=== PATIENT | female | born 1985 | race Caucasian/White ===

== ENCOUNTER 2017-07-22 16:28 | Emergency (ER) | payer MEDICAID ==
[2017-07-22 16:44] VITALS: BP 128/78
--- NOTE | 2017-07-22 17:24 | ED Physician Documentation ---
PD HPI HEENT - Stated complaint Stated Complaint: L EYE REDNESS - Chief complaint Chief Complaint: General - History obtained from History obtained from: Patient - History of Present Illness Timing - onset: How many weeks ago (4) Timing - duration: Weeks (4) Timing - details: Gradual onset, Still present Location: Sinuses, Nose, Throat, Other (left eye) Improves: Nothing Worsens: Everything Associated symptoms: Congestion, Rhinorrhea, Swollen nodes, Headache, Cough Similar symptoms before: Has not had sx before Recently seen: Not recently seen - Additional information Additional information: 31-year-old female has been sick with a cough and congestion for the past 4 weeks. She has had sinus congestion cough productive of phlegm headache lymph node swelling sore throat lost voice and now has redness to the left eye. She relates that she has been on a parasite cleansing and brings in pictures of what appear to be roundworms that she has flushed following this treatment. She took this treatment for itching to her buttocks and this is resolved now Review of Systems Constitutional: reports: Fever, Chills, Myalgias, Fatigue Eyes: denies: Decreased vision Ears: denies: Ear pain Nose: reports: Rhinorrhea / runny nose, Congestion Throat: reports: Sore throat Cardiac: denies: Chest pain / pressure, Palpitations Respiratory: reports: Cough. denies: Dyspnea GI: reports: Constipation. denies: Nausea, Vomiting : denies: Dysuria, Frequency Skin: denies: Rash, Lesions Musculoskeletal: denies: Neck pain, Back pain, Extremity pain Neurologic: denies: Generalized weakness, Focal weakness, Numbness PD PAST MEDICAL HISTORY - Past Medical History Past Medical History: No - Past Surgical History Past Surgical History: No - Present Medications Home Medications: Ambulatory Orders Medication Instructions Recorded Confirmed Azithromycin [Zithromax] 250 mg PO DAILY #6 tablet 07/22/17 - Allergies Allergies/Adverse Reactions: Allergies Allergy/AdvReac Type Severity Reaction Status Date / Time No Known Drug Allergies Allergy Verified 07/22/17 16:47 - Social History Does the pt smoke?: No Smoking Status: Never smoker Does the pt drink ETOH?: No Does the pt have substance abuse?: No - Immunizations Immunizations are current?: Yes - POLST Patient has POLST: No PD ED PE NORMAL - Vitals Vital signs reviewed: Yes (normal ) - General General: No acute distress, Well developed/nourished - HEENT HEENT: Atraumatic, PERRL, EOMI, Other (The left TM is erythematous with indistinct landmarks and the right is clear. The pharynx is with erythema and no specific exudate. The left eye is with erythema and no exudate. There is no cobblestoning of the conjunctiva. ) - Neck Neck: Supple, no meningeal sign, No bony TTP, Other (tender submandibular adenopathy ) - Cardiac Cardiac: RRR, No murmur - Respiratory Respiratory: No respiratory distress, Clear bilaterally - Abdomen Abdomen: Soft, Non tender - Back Back: No CVA TTP, No spinal TTP - Derm Derm: Normal color, Warm and dry, No rash - Extremities Extremities: No deformity, No edema - Neuro Neuro: Alert and oriented X 3, No motor deficit, No sensory deficit, Normal speech Eye Opening: Spontaneous Motor: Obeys Commands Verbal: Oriented GCS Score: 15 - Psych Psych: Normal mood, Normal affect Results - Vitals Vitals: Vital Signs - 24 hr 07/22/17 16:41 Temperature 36.5 C Heart Rate 85 Respiratory 20 Rate Blood Pressure 128/78 O2 Saturation 98 Oxygen O2 Source Room air PD MEDICAL DECISION MAKING - ED course Complexity details: considered differential, d/w patient ED course: 31-year-old female with cough and congestion for 4 weeks has otitis media on examination. She is given dexamethasone [address] her on some azithromycin. In addition she does have a conjunctivitis in the left eye which I suspect is related to the left maxillary sinus. Maxitrol drops are placed Departure - Departure Disposition: 01 Home, Self Care Clinical Impression: Otitis media Qualifiers: Otitis media type: suppurative Chronicity: acute Laterality: left Recurrence: not specified as recurrent Spontaneous tympanic membrane rupture: without spontaneous rupture Qualified Code(s): H66.002 - Acute suppurative otitis media without spontaneous rupture of ear drum, left ear Conjunctivitis Qualifiers: Conjunctivitis type: acute Acute conjunctivitis type: bacterial Laterality: left Qualified Code(s): H10.32 - Unspecified acute conjunctivitis, left eye Condition: Stable Instructions: ED Otitis Media Acute Adult, ED Conjunctivitis Bacterial Follow-Up: [facility] [Provider Group] Prescriptions: Azithromycin [Zithromax] 250 mg PO DAILY #6 tablet Comments: Use the eye drops 3 times per day for 3 days.
[2017-07-22] MEDS ORDERED: DEXAMETHASONE 10 MG/ML VIAL PO STA (17:26)
[2017-07-22] MEDS ORDERED: NEOMYCIN/POLYMYX/DEXAMETH OPHTH DROPS 5 ML LEFTEYE STA (17:27)
[2017-07-22] MEDS ORDERED: DEXAMETHASONE 10 MG/ML VIAL ONE (17:39)
[2017-07-22] MEDS ORDERED: NEOMYCIN/POLYMYX/DEXAMETH OPHTH DROPS 5 ML ONE (17:39)
== END 2017-07-22 17:45 | disposition home or self-care (01) ==
LOC: ED 16:28
DX: H10.32 Unspecified acute conjunctivitis, left eye (principal); B96.89 Other specified bacterial agents as the cause of diseases classified elsewhere; H66.002 Acute suppurative otitis media without spontaneous rupture of ear drum, left ear
CPT/HCPCS: 99283; J3490

== ENCOUNTER 2018-01-12 08:26 | Emergency (ER) | payer MEDICAID ==
--- NOTE | 2018-01-12 08:53 | ED Physician Documentation ---
PD HPI ABD PAIN - Stated complaint Stated Complaint: ABD PX - Chief complaint Chief Complaint: Abd Pain - History obtained from History obtained from: Patient - History of Present Illness Timing - onset: How many weeks ago (several) Timing - duration: Weeks (several) Timing - details: Gradual onset Pain level max: 8 Pain level now: 6 Quality: Aching, Pain, Other ("thumping and fluttering") Location: RUQ Radiation: Other (Nonradiating) Improved by: Other (nothing) Worsened by: Eating, Palpation Associated symptoms: Fever (2 days ago subjective fever), Nausea, Constipation ( 3 days ago). No: Vomiting, Hematemesis, Diarrhea, Melena, Hematochezia, Dysuria , Hematuria, Vaginal bleeding, Vaginal dc Similar symptoms before: Has not had sx before Recently seen: Not recently seen Review of Systems Ten Systems: 10 systems reviewed and negative Ears: denies: Ear pain Nose: denies: Rhinorrhea / runny nose, Congestion Throat: denies: Sore throat Cardiac: denies: Chest pain / pressure Respiratory: denies: Cough GI: denies: Abdominal Swelling, Hematemesis, Bloody / black stool : denies: Now EGA Skin: denies: Rash Musculoskeletal: denies: Neck pain, Back pain Neurologic: denies: Headache PD PAST MEDICAL HISTORY - Past Medical History Past Medical History: No - Past Surgical History 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 - Present Medications Home Medications: Ambulatory Orders Medication Instructions Recorded Confirmed Famotidine [Pepcid] 20 mg PO BID #60 tablet 01/12/18 Omeprazole [PriLOSEC] 20 mg PO DAILY #30 capsule 01/12/18 - Allergies Allergies/Adverse Reactions: Allergies Allergy/AdvReac Type Severity Reaction Status Date / Time No Known Drug Allergies Allergy Verified 01/12/18 08:50 - Living Situation Living Situation: reports: With family Living Arrangement: reports: At home - Social History Does the pt smoke?: No Smoking Status: Never smoker Does the pt drink ETOH?: No Does the pt have substance abuse?: No - Family History Family history: reports: Non contributory - Immunizations Immunizations are current?: Yes - POLST Patient has POLST: No PD ED PE NORMAL - Vitals Vital signs reviewed: Yes - General General: Alert and oriented X 3, No acute distress, Well developed/nourished - HEENT HEENT: PERRL, Moist mucous membranes - Neck Neck: Supple, no meningeal sign - Cardiac Cardiac: RRR, Strong equal pulses - Respiratory Respiratory: No respiratory distress, Clear bilaterally - Abdomen Abdomen: Soft, Non distended, Other (Tender to palpation right upper quadrant. Positive Wilkes sign.) - Back Back: No spinal TTP - Derm Derm: Warm and dry - Extremities Extremities: No edema, No calf tenderness / cord - Neuro Neuro: Alert and oriented X 3 - Psych Psych: Normal mood, Normal affect Results - Vitals Vitals: Vital Signs - 24 hr 01/12/18 01/12/18 01/12/18 08:44 10:47 11:54 Temperature 36.5 C 36.3 C L 36.1 C L Heart Rate 81 82 82 Respiratory 16 18 20 Rate Blood Pressure 120/82 H 113/81 H 134/100 H O2 Saturation 99 100 91 L Oxygen O2 Source Room air - Labs Labs: Laboratory Tests 01/12/18 01/12/18 01/12/18 09:10 09:10 09:10 WBC 6.1 RBC 4.87 Hgb 14.2 Hct 42.1 MCV 86.4 MCH 29.1 MCHC 33.7 RDW 13.4 Plt Count 226 MPV 8.6 Neut # 3.1 Lymph # 2.1 [place] # 0.7 Eos # 0.2 Baso # 0.0 Absolute Nucleated RBC 0.00 Nucleated RBC % 0.0 Sodium 138 Potassium 3.2 L Chloride 102 Carbon Dioxide 26 Anion Gap 10.0 BUN 13 Creatinine 0.6 Estimated GFR (MDRD) 117 Glucose 94 Calcium 9.3 Total Bilirubin 0.5 AST 20 ALT 18 Alkaline Phosphatase 56 Total Protein 8.4 H Albumin 4.2 Globulin 4.2 Albumin/Globulin Ratio 1.0 Lipase 21 L Urine Color YELLOW Urine Clarity CLEAR Urine pH 6.0 Ur Specific [place] >=1.030 H Urine Protein NEGATIVE Urine Glucose (UA) NEGATIVE Urine Ketones NEGATIVE Urine Occult Blood SMALL H Urine Nitrite NEGATIVE Urine Bilirubin NEGATIVE Urine Urobilinogen 0.2 (NORMAL) Ur Leukocyte Esterase NEGATIVE Urine RBC 0-5 Urine WBC 0-3 Ur Squamous Epith Cells RARE Squamous Urine Bacteria Rare Urine Casts 0-2 Broad Casts Ur Microscopic Review INDICATED Urine Culture Comments NOT INDICATED Urine HCG, Qual 01/12/18 09:10 WBC RBC Hgb Hct MCV MCH MCHC RDW Plt Count MPV Neut # Lymph # [place] # Eos # Baso # Absolute Nucleated RBC Nucleated RBC % Sodium Potassium Chloride Carbon Dioxide Anion Gap BUN Creatinine Estimated GFR (MDRD) Glucose Calcium Total Bilirubin AST ALT Alkaline Phosphatase Total Protein Albumin Globulin Albumin/Globulin Ratio Lipase Urine Color Urine Clarity Urine pH Ur Specific [place] >=1.030 H Urine Protein Urine Glucose (UA) Urine Ketones Urine Occult Blood Urine Nitrite Urine Bilirubin Urine Urobilinogen Ur Leukocyte Esterase Urine RBC Urine WBC Ur Squamous Epith Cells Urine Bacteria Urine Casts Ur Microscopic Review Urine Culture Comments Urine HCG, Qual NEGATIVE - Rads (name of study) RUQ US Radiology: Prelim report reviewed, EMP read contemporaneously, See rad report ( normal RUQ US) abd/pelvis ct Radiology: Prelim report reviewed, EMP read contemporaneously, See rad report ( no acute abnormalities.) PD MEDICAL DECISION MAKING - ED course Complexity details: reviewed results, re-evaluated patient, considered differential, d/w patient ED course: Patient is a 32-year-old female who presents to the emergency department with abdominal pain. No acute findings on laboratory testing, ultrasound or CT scan. Patient was given a GI cocktail and does feel better. Upon further investigation, she states she did have an ulcer that was bleeding when she was in ninth grade. Has not been on any medications for that since that time. We will treat her for a possible duodenal ulcer and follow-up closely with her doctor. She was informed that she may need an EGD and further testing with her doctor. Patient counseled regarding signs and symptoms for which I believe and urgent re-evaluation would be necessary. Patient with good understanding of and agreement to plan and is comfortable going home at this time This document was made in part using voice recognition software. While efforts are made to proofread this document, sound alike and grammatical errors may occur. Departure - Departure Disposition: 01 Home, Self Care Clinical Impression: Duodenal ulcer Abdominal pain Qualifiers: Abdominal location: right upper quadrant Qualified Code(s): R10.11 - Right upper quadrant pain Condition: Good Instructions: ED Abdominal Pain Unkn Cause, ED PUD Follow-Up: your,doctor in 1 week [Other] Prescriptions: Famotidine [Pepcid] 20 mg PO BID #60 tablet Omeprazole [PriLOSEC] 20 mg PO DAILY #30 capsule Comments: Return if you worsen. This should improve over the next few days 2 weeks. Avoid fried foods, spicy foods. Avoid motrin and aleve as well. Discharge Date/Time: 01/12/18 12:05
[2018-01-12 09:33] LABS: BILIRUBIN,URINE NEGATIVE (NEGATIVE); GLUCOSE, URINE (UA) NEGATIVE (NEGATIVE); KETONES,URINE (UA) NEGATIVE (NEGATIVE); LEUKOCYTE ESTERASE, URINE NEGATIVE (NEGATIVE); NITRITE,URINE NEGATIVE (NEGATIVE); OCCULT BLOOD,URINE SMALL (NEGATIVE); PROTEIN,URINE NEGATIVE (NEGATIVE); UROBILINOGEN,URINE 0.2 (NORMAL) E.U./dL (NORMAL)
[2018-01-12 09:39] LABS: BASOPHILS % (AUTO) 0.6 %; EOSINOPHILS # (AUTO) 0.2 10^3/uL (0.0-0.7); HGB - HEMOGLOBIN 14.2 g/dL (12.0-16.0); LYMPHOCYTES # (AUTO) 2.1 10^3/uL (1.5-3.5); LYMPHOCYTES % (AUTO) 34.4 %; MEAN CORPUSCULAR HEMOGLOBIN 29.1 pg (27.0-31.0); MEAN CORPUSCULAR HGB CONC 33.7 g/dL (32.0-36.0); MEAN CORPUSCULAR VOLUME 86.4 fL (81.0-99.0); MEAN PLATELET VOLUME 8.6 fL (7.9-10.8); MONOCYTES # (AUTO) 0.7 10^3/uL (0.0-1.0); MONOCYTES % (AUTO) 11.1 %; NEUTROPHILS # (AUTO) 3.1 10^3/uL (1.5-6.6); NEUTROPHILS % (AUTO) 50.9 %; PLT - PLATELET COUNT 226 10^3/uL (130-450); RED BLOOD COUNT 4.87 10^6/uL (4.20-5.40); RED CELL DISTRIBUTION WIDTH 13.4 % (12.0-15.0); WHITE BLOOD COUNT 6.1 x10^3/uL (4.8-10.8)
[2018-01-12 09:43] LABS: CLARITY,URINE CLEAR (CLEAR)
[2018-01-12 09:57] LABS: ALBUMIN 4.2 g/dL (3.2-5.5); BILIRUBIN,TOTAL 0.5 mg/dL (0.2-1.0); CALCIUM 9.3 mg/dL (8.5-10.3); CREATININE 0.6 mg/dL (0.4-1.0); TOTAL PROTEIN 8.4 g/dL (6.7-8.2)
[2018-01-12 10:02] LABS: BACTERIA,URINE Rare /HPF (None Seen); CASTS, URINE 0-2 Broad Casts /LPF; RBC,URINE 0-5 /HPF (0-5); SQUAMOUS EPITHELIAL CELL,UR RARE Squamous (<= Few)
[2018-01-12] MEDS ORDERED: IOPAMIDOL-300 100 ML VIAL IVP ONE (10:25)
[2018-01-12] MEDS ORDERED: IOPAMIDOL-300 100 ML VIAL ONE (10:26)
[2018-01-12 10:43] LABS: HCG UR QUAL NEGATIVE
--- NOTE | 2018-01-12 11:25 | CT Report ---
EXAM: CT ABDOMEN AND PELVIS EXAM DATE: 01/12/2018 11:09 AM. CLINICAL HISTORY: R sided abd pain. COMPARISONS: None. TECHNIQUE: Routine helical CT imaging was performed through the abdomen and pelvis. IV contrast: 100 cc Isovue-300. Enteric contrast: No. Reconstructions: Coronal and sagittal. In accordance with CT protocol optimization, one or more of the following dose reduction techniques w ere utilized for this exam: automated exposure control, adjustment of mA and/or KV based on patient s ize, or use of iterative reconstructive technique. FINDINGS: Lung Bases: Unremarkable. Liver: Normal. No masses. Gallbladder/Bile Ducts: Unremarkable. Spleen: Normal. Medial splenule. Pancreas: Normal. Adrenal Glands: Normal. Kidneys: 2.4 cm lateral left upper renal cyst with water attenuation. Multiple additional smaller pro bable cysts that are too small to characterize are noted within each kidney. No suspicious mass or hy dronephrosis. Peritoneal Cavity/Bowel: Normal. No free fluid, free air or adenopathy. No masses or acute inflammato ry process. The appendix is well visualized and normal. Pelvic Organs: Normal. The bladder and visualized pelvic organs are within normal limits. Vasculature: No aneurysms or other significant abnormality. Bones: No significant abnormality. Other: None. IMPRESSION: No acute inflammatory process demonstrated. [facility] Referring Provider Line: [phone] SITE ID: [id number]
[2018-01-12] MEDS ORDERED: PHENobarb/HYOSCY/ATROPINE/SCOP 5 ML UDC PO STA (11:29)
[2018-01-12] MEDS ORDERED: MAG HYDROX/AL HYDROX/SIMETH 30 ML UDC PO STA (11:29)
[2018-01-12] MEDS ORDERED: FAMOTIDINE 20 MG TABLET PO STA (11:29)
[2018-01-12] MEDS ORDERED: SUCRALFATE 1 GM/10 ML UDC PO STA (11:29)
[2018-01-12] MEDS ORDERED: LIDOCAINE VISCOUS 2% 15 ML UDC MM STA (11:29)
[2018-01-12 11:55] VITALS: BP 134/100
--- NOTE | 2018-01-15 13:17 | Ultrasound Report ---
RIGHT UPPER QUADRANT ULTRASOUND: 01/12/2018 INDICATION: Pain. TECHNIQUE: Real-time scanning was performed with healthcare sales representative static images obtained. FINDINGS: The liver measures 13.7 cm. Hepatic echogenicity is normal. No intrahepatic biliary dilatation or focal parenchymal lesion is present. The common bile duct measures 4 mm. The gallbladder is normal. The right kidney measures 12.3 cm, and demonstrates no hydronephrosis. No free fluid is present. IMPRESSION: NORMAL RIGHT UPPER QUADRANT ULTRASOUND. TD: 01/12/2018 09:57
== END 2018-01-12 12:05 | disposition home or self-care (01) ==
LOC: ED 08:26
DX: K26.9 Duodenal ulcer, unspecified as acute or chronic, without hemorrhage or perforation (principal)
CPT/HCPCS: 36415; 74177; 76705; 80053; 81001; 81025; 83690; 85025; 99283; 99284; A9270; Q9967; 81003; 87086

== ENCOUNTER 2019-05-14 09:36 | Emergency (ER) | payer MEDICAID ==
[2019-05-14 09:51] VITALS: BP 119/84
--- NOTE | 2019-05-14 10:36 | ED Physician Documentation ---
PD HPI FEMALE - Stated complaint Stated Complaint: HEMORRHOID - Chief complaint Chief Complaint: General - History obtained from History obtained from: Patient - History of Present Illness Timing - onset: How many days ago (few) Timing - duration: Days (few) Timing - details: Gradual onset, Still present (onset recurrent hemorrhoids and now with increasing pain/tender for few days. Feels c/w thrombosed hemorrhoid she has had in the past.) Associated symptoms: No: Fever, Genital sore/lesion Contributing factors: Other (some constipation chronically but takes fiber and is well hydrated.) Similar symptoms before: Diagnosis (hemorrhoids and has had few thrombosed hemorrhoids in the past.) Recently seen: Not recently seen Review of Systems Constitutional: denies: Fever, Chills GI: denies: Abdominal Pain, Nausea, Vomiting, Constipation, Diarrhea PD PAST MEDICAL HISTORY - Past Medical History Cardiovascular: None Respiratory: None Neuro: None Endocrine/Autoimmune: None GI: Chronic constipation, Hemorrhoids - Past Surgical History Past Surgical History: Yes /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 - Present Medications Home Medications: Ambulatory Orders Medication Instructions Recorded Confirmed Docusate Sodium 100 mg PO DAILY #30 capsule 05/14/19 - Allergies Allergies/Adverse Reactions: Allergies Allergy/AdvReac Type Severity Reaction Status Date / Time No Known Drug Allergies Allergy Verified 05/14/19 09:51 - Social History Does the pt smoke?: No Smoking Status: Never smoker Does the pt drink ETOH?: No Does the pt have substance abuse?: No - Immunizations Immunizations are current?: Yes - POLST Patient has POLST: No PD ED PE NORMAL - Vitals Vital signs reviewed: Yes - General General: Alert and oriented X 3, Well developed/nourished, Other (seems uncomfortable, lying on side. ) - Abdomen Abdomen: Soft, Non tender - Female Female : Deferred - Rectal Rectal: Other (external hemorrhoids with one 1 cm rounded very tender purplish colored component c/w thrombosed segment. ) - Back Back: No CVA TTP - Derm Derm: Normal color, Warm and dry, No rash Results - Vitals Vitals: Vital Signs - 24 hr 05/14/19 09:50 Temperature 36.7 C Heart Rate 79 Respiratory 18 Rate Blood Pressure 119/84 H O2 Saturation 100 Oxygen O2 Source Room air Procedures - General procedure General procedure: LET and then lido 1% with epi used to numb the thrombosed segment of hemorrhoid. Then #11 scalpel used to open it and forceps to pull clot. The firm segment deflated and did not have purple color c/w removal of the thrombus. Pt tolerated well. Departure - Departure Disposition: 01 Home, Self Care Clinical Impression: Thrombosed hemorrhoids Condition: Stable Record reviewed to determine appropriate education?: Yes Instructions: ED Hemorrhoids Prescriptions: Docusate Sodium 100 mg PO DAILY #30 capsule Comments: Continue with help well-hydrated and fiber. Use the hemorrhoid treatments such as sitting baths and Preparation H and topical hydrocortisone to help with the hemorrhoid. The clot seems to be removed now and the hemorrhoid is deflating so it should hurt less and heal up better. Add a stool softener daily. Suggest docusate 100 mg orally. No laxatives at this point. Follow-up with gastroenterology as planned. Discharge Date/Time: 05/14/19 12:07
[2019-05-14] MEDS ORDERED: LIDOCAINE-EPINEPH-TETRACAINE 3 ML SYRINGE TOP STA (11:01)
[2019-05-14] MEDS ORDERED: NAPROXEN 250 MG TABLET PO STA (11:01)
== END 2019-05-14 12:07 | disposition home or self-care (01) ==
LOC: ED 09:36
DX: K64.5 Perianal venous thrombosis (principal)
CPT/HCPCS: 46083; 99282; 99284; A9270

== ENCOUNTER 2019-07-04 12:51 | Outpatient (CLI) | payer MEDICAID ==
[2019-07-04 17:26] LABS: BASOPHILS # (AUTO) 0.1 10^3/uL (0.0-0.1); BASOPHILS % (AUTO) 0.7 %; EOSINOPHILS # (AUTO) 0.2 10^3/uL (0.0-0.7); EOSINOPHILS % (AUTO) 3.2 %; HGB - HEMOGLOBIN 14.3 g/dL (12.0-16.0); LYMPHOCYTES # (AUTO) 2.3 10^3/uL (1.5-3.5); MEAN CORPUSCULAR HGB CONC 32.9 g/dL (32.0-36.0); MEAN CORPUSCULAR VOLUME 91.2 fL (81.0-99.0); MEAN PLATELET VOLUME 12.7 fL (7.9-10.8); MONOCYTES # (AUTO) 0.5 10^3/uL (0.0-1.0); MONOCYTES % (AUTO) 6.5 %; NEUTROPHILS # (AUTO) 4.2 10^3/uL (1.5-6.6); NEUTROPHILS % (AUTO) 58.3 %; PLT - PLATELET COUNT 250 10^3/uL (130-450); RED BLOOD COUNT 4.76 10^6/uL (4.20-5.40); RED CELL DISTRIBUTION WIDTH 12.7 % (12.0-15.0); WHITE BLOOD COUNT 7.3 x10^3/uL (4.8-10.8)
[2019-07-04 18:02] LABS: CALCIUM 9.2 mg/dL (8.5-10.3); CREATININE 0.5 mg/dL (0.4-1.0)
== END 2019-07-04 12:52 | disposition home or self-care (01) ==
LOC: LAB.S 12:51
PROVIDERS: ATTEND Registered Nurse
DX: G43.909 Migraine, unspecified, not intractable, without status migrainosus (principal)
CPT/HCPCS: 36415; 80048; 84443; 85025

== ENCOUNTER 2019-10-26 19:51 | Emergency (ER) | payer MEDICAID ==
[2019-10-26 19:59] VITALS: BP 127/82
[2019-10-26] MEDS ORDERED: BUPIVACAINE 0.5% PF 30 ML VIAL SUBQ ONE (20:13)
[2019-10-26] MEDS ORDERED: LIDOCAINE 2%-EPI 1:100000 20 ML MDV SUBQ STA (20:13)
--- NOTE | 2019-10-26 20:14 | ED Physician Documentation ---
History of Present Illness - Stated complaint Stated Complaint: FEMALE - Chief complaint Chief Complaint: General - History obtained from History obtained from: Patient (34-year-old woman with history of thrombosed hemorrhoids presents with 1 week of painful hemorrhoid that she would like incised and drained. She is had this done several times before. 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 - Present Medications Home Medications: Ambulatory Orders Medication Instructions Recorded Confirmed Docusate Sodium 100 mg PO DAILY #30 capsule 05/14/19 - Allergies Allergies/Adverse Reactions: Allergies Allergy/AdvReac Type Severity Reaction Status Date / Time No Known Drug Allergies Allergy Verified 05/14/19 09:51 - Social History Does the pt smoke?: Yes Smoking Status: Current every day smoker Does the pt drink ETOH?: No Does the pt have substance abuse?: No - Immunizations Immunizations are current?: Yes - POLST Patient has POLST: No PD ED PE NORMAL - Vitals Vital signs reviewed: Yes - General General: Alert and oriented X 3, No acute distress - Female Female : Other (Thrombosed hemorrhoid on the right side all exams and procedures done with female nurse at the bedside.) - Neuro Neuro: Alert and oriented X 3, Normal speech Results - Vitals Vitals: Vital Signs - 24 hr 10/26/19 19:56 Temperature 37.1 C Heart Rate 87 Respiratory 16 Rate Blood Pressure 127/82 H O2 Saturation 100 Oxygen O2 Source Room air Procedures - General procedure General procedure: Incision and drainage of thrombosed hemorrhoid: Verbal Consent was obtained after discussion of the risks and benefits. The root of the hemorrhoid was infiltrated with 1% lidocaine with epinephrine with excellent anesthesia and then a elliptical incision was made and clot was expressed. Blood loss 2 mL. Patient tolerated this very well. Departure - Departure Disposition: 01 Home, Self Care Clinical Impression: Thrombosed hemorrhoids Condition: Good Record reviewed to determine appropriate education?: Yes Instructions: ED Hemorrhoids Comments: Call your doctor to arrange a follow-up appointment, make the next available appointment. In the interim, return anytime if worse or if new symptoms develop.
== END 2019-10-26 20:31 | disposition home or self-care (01) ==
LOC: ED 19:51
DX: K64.5 Perianal venous thrombosis (principal); F17.200 Nicotine dependence, unspecified, uncomplicated
CPT/HCPCS: 46083

== ENCOUNTER 2020-09-16 08:00 | Outpatient (CLI) | payer MEDICAID ==
[2020-09-16 21:01] LABS: BILIRUBIN,URINE NEGATIVE (NEGATIVE); GLUCOSE, URINE (UA) NEGATIVE (NEGATIVE); KETONES,URINE (UA) NEGATIVE (NEGATIVE); LEUKOCYTE ESTERASE, URINE NEGATIVE (NEGATIVE); NITRITE,URINE NEGATIVE (NEGATIVE); OCCULT BLOOD,URINE SMALL (NEGATIVE); PROTEIN,URINE NEGATIVE (NEGATIVE); UROBILINOGEN,URINE 0.2 (NORMAL) E.U./dL (NORMAL)
[2020-09-16 21:07] LABS: CLARITY,URINE CLEAR (CLEAR)
[2020-09-16 21:12] LABS: BACTERIA,URINE Rare /HPF (None Seen); CREATININE,URINE 201.1 mg/dL; MICROALBUM/CREATININE RATIO,UR 3.5 ug/mg (<30.0); MICROALBUMIN,URINE 0.7 mg/dL (0-300.0); MUCUS,URINE Moderate Strands; RBC,URINE 0-5 /HPF (0-5); SQUAMOUS EPITHELIAL CELL,UR FEW Squamous (<= Few)
== END 2020-09-16 23:59 | disposition home or self-care (01) ==
LOC: LAB.R 08:00
PROVIDERS: ATTEND Physician Assistant
DX: R30.0 Dysuria (principal); R30.9 Painful micturition, unspecified; R31.9 Hematuria, unspecified; R14.0 Abdominal distension (gaseous)
CPT/HCPCS: 36415; 80048; 81001; 82043; 82570; 87086

== ENCOUNTER 2020-09-16 15:02 | Outpatient (CLI) | payer MEDICAID ==
[2020-09-16 20:30] LABS: BILIRUBIN,URINE NEGATIVE (NEGATIVE); GLUCOSE, URINE (UA) NEGATIVE (NEGATIVE); KETONES,URINE (UA) NEGATIVE (NEGATIVE); LEUKOCYTE ESTERASE, URINE NEGATIVE (NEGATIVE); NITRITE,URINE NEGATIVE (NEGATIVE); OCCULT BLOOD,URINE SMALL (NEGATIVE); PH,URINE 6.5 PH (5.0-7.5); PROTEIN,URINE NEGATIVE (NEGATIVE); UROBILINOGEN,URINE 0.2 (NORMAL) E.U./dL (NORMAL)
[2020-09-16 20:48] LABS: CLARITY,URINE CLEAR (CLEAR)
[2020-09-16 20:50] LABS: BACTERIA,URINE Few /HPF (None Seen); RBC,URINE 0-5 /HPF (0-5); SQUAMOUS EPITHELIAL CELL,UR FEW Squamous (<= Few)
[2020-09-16 20:51] LABS: CREATININE,URINE 149.7 mg/dL; MICROALBUMIN,URINE 0.3 mg/dL (0-300.0)
[2020-09-16 20:59] LABS: CREATININE 0.7 mg/dL (0.4-1.0)
== END 2020-09-16 15:03 | disposition home or self-care (01) ==
LOC: LAB.S 15:02
PROVIDERS: ATTEND Physician Assistant
DX: R30.0 Dysuria (principal); R31.9 Hematuria, unspecified; R14.0 Abdominal distension (gaseous)
CPT/HCPCS: 36415; 80048; 81001; 82043; 82570; 87086

== ENCOUNTER 2020-10-23 15:20 | Outpatient (CLI) | payer MEDICAID ==
--- NOTE | 2020-10-24 10:42 | Ultrasound Report ---
PROCEDURE: Retroperitoneal INDICATIONS: BURN ON URINATION, HEMATURIA, DYSURIA, PELVIC PAIN TECHNIQUE: Real-time scanning was performed of the retroperitoneal organs, with image documentation. COMPARISON: Correlation is made with prior CT and ultrasound examinations, 01/12/2018. Correlation is also made with the accompanying pelvic ultrasound, 10/23/2020. FINDINGS: Kidneys: Kidneys are normal in size. Right kidney measures 12.3 cm long; left kidney measures 12.2 cm long. Right renal cortical thickness is 2.1 cm; left renal cortical thickness is 2 cm. No hydrone phrosis is seen. At the superior pole of the left kidney, there is a complex appearing cyst, with apparent layering de bris that measures 1.7 x 1.7 x 2.3 cm. At the inferior pole of the right kidney, there is a simple cy st seen that measures up to 1.5 cm. At the superior pole of the right kidney, there is an echogenic focus that measures up to 5 mm. Bladder: The prevoid bladder volume is 473 cc. The post void bladder volume is 40 cc. Both ureteral jets can be seen. IMPRESSION: There is a complex cyst at the superior pole of the left kidney, which demonstrates layering debris w ithin it. This is more complex in appearance than on the prior CT dated 01/12/2018. When clinically ap propriate, please consider a follow-up renal mass protocol CT (without and with contrast) for furthe r evaluation. Moderate postvoid residual, 40 cc. 5 mm echogenic focus at the superior pole of the right kidney, which may related to a fat-containing lesion. Incidental note is made of: Simple appearing cyst at the inferior pole of the right kidney. Reviewed by: Bobby Raymond MD on 10/24/2020 9:40 AM [facility] [[email or web address]] Approved by: Bobby Raymond MD on 10/24/2020 9:40 AM [facility] [[email or web address]] Station ID: [id number]
--- NOTE | 2020-10-24 11:14 | Ultrasound Report ---
PROCEDURE: Pelvic w/Transvaginal INDICATIONS: BURN ON URINATION, HEMATURIA, DYSURIA, PELVIC PAIN TECHNIQUE: Real-time scanning was performed of the pelvic organs, with image documentation. Additional endovagi nal scanning was necessary due to incomplete visualization of the adnexal and endometrial structures by transabdominal scanning. COMPARISON: Correlation is made with a complete retroperitoneal ultrasound, 10/23/2020. Correlation i s also made with the prior abdomen pelvis CT, 01/12/2018. FINDINGS: No pathologic free abdominal or pelvic fluid. Uterus: Uterus is normal in size at 9.3 x 4.8 x 6 cm. The endometrium measures 14 mm in combined th ickness. Ovaries: The right ovary measures 4.5 x 2.5 x 4.6 cm and demonstrates a complex cyst that measures u p to 2.1 cm. The left ovary measures 2.8 x 1.9 x 2.8 cm. No significant additional ovarian abnormalit ies are seen. There are less than 12 follicles seen on each side. No adnexal masses are seen. IMPRESSION: Complex cyst involving the right ovary that most likely represents a hemorrhagic cyst that measures u p to 2.1 cm. If clinically appropriate, please consider a short-term follow-up ultrasound in 6 weeks to ensure resolution/improvement. Reviewed by: Bobby Raymond MD on 10/24/2020 10:13 AM [facility] Approved by: Bobby Raymond MD on 10/24/2020 10:13 AM MD Station ID: [id number]
== END 2020-10-23 15:21 | disposition home or self-care (01) ==
LOC: DI 15:20
PROVIDERS: ATTEND Physician Assistant
DX: R30.0 Dysuria (principal); R31.9 Hematuria, unspecified; R10.2 Pelvic and perineal pain; N28.1 Cyst of kidney, acquired; N83.201 Unspecified ovarian cyst, right side

== ENCOUNTER 2020-10-27 17:38 | Outpatient (CLI) | payer MEDICAID ==
[2020-10-27 20:10] LABS: HCG,QUALITATIVE BLOOD NEGATIVE
== END 2020-10-27 17:39 | disposition home or self-care (01) ==
LOC: LAB.S 17:38
PROVIDERS: ATTEND Physician Assistant
DX: N83.291 Other ovarian cyst, right side (principal); N28.1 Cyst of kidney, acquired; R10.2 Pelvic and perineal pain; R31.9 Hematuria, unspecified
CPT/HCPCS: 36415; 82728; 84703; 85651

== ENCOUNTER 2020-11-15 17:53 | Outpatient (CLI) | payer MEDICAID ==
--- NOTE | 2020-11-15 22:06 | Ultrasound Report ---
PROCEDURE: Retroperitoneal INDICATIONS: RENAL CYST, LEFT TECHNIQUE: Real-time scanning was performed of the retroperitoneal organs, with image documentation. COMPARISON: CT and ultrasound of abdomen dated 01/12/2018. FINDINGS: Kidneys: Kidneys are normal in size. Right kidney measures 12.8 cm long; left kidney measures 12.6 cm long. Right renal cortical thickness is 2.3 cm; left renal cortical thickness is 1.8 cm. There is no hydronephrosis. Solid echogenic focus in upper pole of right kidney is seen measures 7 x 5 x 4 mm in size. A 1.3 x 1.1 x 1 cm simple cyst is seen in lower pole of right kidney. 2.2 x 1.8 x [address] with peripheral calcifications is seen in upper pole of left kidney. Echogenic focus measures 1.3 x 0.8 x 0.9 cm in size is noted in upper pole of left kidney. No internal vascularity is seen. Prevoid bladder volume is 696.7 cc. Postvoid residual is 22.8 cc. Bilateral ureteral jets are seen. N o gross bladder wall thickening or discrete bladder wall mass is noted. IMPRESSION: 1. Small simple cyst in lower pole of right kidney. Peripherally calcified cyst seen in upper pole of left kidney. 2 echogenic foci are noted in bilateral upper pole kidneys which may represent parenchy mal calcifications secondary to remote injury or infection versus nonobstructing renal calculi. No hy dronephrosis. No vascular renal lesion is seen. 2. No gross abnormality is seen in urinary bladder. Small amount of post void residual as above. Reviewed by: Jason Go MD on 11/15/2020 10:05 PM PDT Approved by: Jason Go MD on 11/15/2020 10:05 PM PDT Station ID: [id number]
--- NOTE | 2020-11-15 22:11 | Ultrasound Report ---
PROCEDURE: Pelvic w/Transvaginal INDICATIONS: OVARIAN CYST, R SIDE TECHNIQUE: Real-time scanning was performed of the pelvic organs, with image documentation. Additional endovagi nal scanning was necessary due to incomplete visualization of the adnexal and endometrial structures by transabdominal scanning. COMPARISON: 10/23/2020. CT of abdomen and pelvis dated 01/12/2018 FINDINGS: No pathologic free abdominal or pelvic fluid. Uterus: Uterus measures 9.3 x 6.1 x 5.3 cm. In size The endometrium measures 41.2 mm in combined th ickness. No discrete endometrial mass or fluid is seen. No discrete uterine fibroid is noted. Ovaries: Right ovary measures 4.7 x 2.3 x 2.4 cm in size. Left ovary measures 4.7 x 2.7 x 3.7 cm in size. Greater than 12 follicles are seen in bilateral ovaries. There is a slightly hypoechoic structu re seen in left ovary measures 1.8 x 2.1 x 1.5 cm in size and show peripheral vascularity. Previously described possible hemorrhagic right ovarian cyst is no longer seen. IMPRESSION: 1. Thickened endometrium. No discrete endometrial mass or fluid. No discrete uterine fibroid. 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 2. Greater than 12 follicles are seen in bilateral ovaries and is consistent with polycystic ovaries. Previously described possible hemorrhagic right ovarian cyst is no longer seen. Hyperechoic left ova delbert lesion measures 1.8 x 2.1 x 1.5 cm in size with peripheral vascularity is seen on the current st udy which may represent a complex cyst or hemorrhagic cyst. Solid ovarian lesion cannot be excluded. Clinical correlation and continued sonographic follow-up is recommended. Reviewed by: Jason Go MD on 11/15/2020 10:09 PM PDT Approved by: Jason Go MD on 11/15/2020 10:09 PM PDT Station ID: [id number]
== END 2020-11-15 17:54 | disposition home or self-care (01) ==
LOC: DI 17:53
PROVIDERS: ATTEND Physician Assistant
DX: N28.1 Cyst of kidney, acquired (principal); R93.89 Abnormal findings on diagnostic imaging of other specified body structures; E28.2 Polycystic ovarian syndrome

== ENCOUNTER 2021-02-17 11:54 | Outpatient (CLI) | payer MEDICAID ==
[2021-02-17 16:43] LABS: ESTIMATED AVERAGE GLUCOSE 97 mg/dL (70-100)
== END 2021-02-17 11:55 | disposition home or self-care (01) ==
LOC: LAB.S 11:54
PROVIDERS: ATTEND Physician Assistant
DX: E28.2 Polycystic ovarian syndrome (principal)
CPT/HCPCS: 36415; 82626; 83036; 84403

== ENCOUNTER 2021-08-18 08:00 | Outpatient (CLI) | payer MEDICAID | END 2021-08-18 23:59 | disposition home or self-care (01) | LOC: LAB.S 08:00 | PROVIDERS: ATTEND Physician Assistant | DX: R30.0 Dysuria (principal) | CPT/HCPCS: 87086 ==

== ENCOUNTER 2021-09-20 08:00 | Outpatient (CLI) | payer MEDICAID ==
[2021-09-20 14:37] LABS: BILIRUBIN,URINE NEGATIVE (NEGATIVE); GLUCOSE, URINE (UA) NEGATIVE (NEGATIVE); KETONES,URINE (UA) NEGATIVE (NEGATIVE); LEUKOCYTE ESTERASE, URINE NEGATIVE (NEGATIVE); NITRITE,URINE POSITIVE (NEGATIVE); OCCULT BLOOD,URINE SMALL (NEGATIVE); PROTEIN,URINE NEGATIVE (NEGATIVE); UROBILINOGEN,URINE 0.2 (NORMAL) E.U./dL (NORMAL)
[2021-09-20 14:52] LABS: BACTERIA,URINE Rare /HPF (None Seen); CLARITY,URINE CLEAR (CLEAR); RBC,URINE 0-5 /HPF (0-5); SQUAMOUS EPITHELIAL CELL,UR MOD Squamous (<= Few)
== END 2021-09-20 23:59 | disposition home or self-care (01) ==
LOC: LAB.S 08:00
PROVIDERS: ATTEND Registered Nurse
DX: R31.9 Hematuria, unspecified (principal)
CPT/HCPCS: 81001; 87086

== ENCOUNTER 2022-05-18 10:21 | Outpatient (CLI) | payer MEDICAID ==
--- NOTE | 2022-05-18 21:38 | XRAY Report ---
PROCEDURE: Humerus RT INDICATIONS: RIGHT ARM PAIN TECHNIQUE: 2 views of the humerus were acquired. COMPARISON: None FINDINGS: Bones: ORIF of the mid and distal humerus is present. Hardware appears intact without evidence of chip dware fracture or periprosthetic loosening. Old diaphyseal fracture is noted. No suspicious bony lesi ons. Soft tissues: No suspicious soft tissue calcifications. IMPRESSION: No visualized acute fracture or dislocation. However, occult injury cannot be excluded. Recommend pilo rt interval imaging follow-up in 7-10 days as clinically indicated for additional evaluation. Reviewed by: Carolina Coleman MD on 05/18/2022 9:37 PM PDT Approved by: Carolina Coleman MD on 05/18/2022 9:37 PM PDT Station ID: [id number]
== END 2022-05-18 10:22 | disposition home or self-care (01) ==
LOC: DI.S 10:21
PROVIDERS: ATTEND Emergency Medicine
DX: M79.601 Pain in right arm (principal)

== ENCOUNTER 2022-07-05 10:39 | Outpatient (CLI) | payer MEDICAID ==
--- NOTE | 2022-07-05 14:36 | XRAY Report ---
PROCEDURE: Humerus RT INDICATIONS: RIGHT HUMERUS ORIF TECHNIQUE: 2 views of the humerus were acquired. COMPARISON: X-ray right humerus, 10/15/2014 and 05/18/2022. FINDINGS: Bones: Old fracture and deformity with internal fixation of the humeral shaft. No acute fractures or dislocations. No suspicious bony lesions. Soft tissues: No suspicious soft tissue calcifications. IMPRESSION: 1. No acute fractures visualized. 2. Old fracture/deformity with internal fixation of the humeral shaft. Reviewed by: Gladys Anderson MD on 07/05/2022 2:35 PM PST Approved by: Gladys Anderson MD on 07/05/2022 2:35 PM PST Station ID: [id number]
== END 2022-07-05 10:40 | disposition home or self-care (01) ==
LOC: DI.WOS 10:39
PROVIDERS: ATTEND Physician Assistant Surgical
DX: M79.621 Pain in right upper arm (principal); Z87.81 Personal history of (healed) traumatic fracture

== ENCOUNTER 2023-09-19 10:01 | Emergency (ER) | payer MEDICAID, OTHER ==
[2023-09-19 10:29] LABS: BILIRUBIN,URINE NEGATIVE (NEGATIVE); GLUCOSE, URINE (UA) NEGATIVE (NEGATIVE); KETONES,URINE (UA) NEGATIVE (NEGATIVE); LEUKOCYTE ESTERASE, URINE NEGATIVE (NEGATIVE); NITRITE,URINE NEGATIVE (NEGATIVE); OCCULT BLOOD,URINE SMALL (NEGATIVE); PH,URINE 5.5 PH (5.0-7.5); PROTEIN,URINE NEGATIVE (NEGATIVE); UROBILINOGEN,URINE 0.2 (NORMAL) E.U./dL (NORMAL)
--- NOTE | 2023-09-19 10:32 | ED Physician Documentation ---
PD HPI ABD PAIN - Stated complaint Stated Complaint: BLOATED,,ABD PX - Chief complaint Chief Complaint: Abd Pain - History obtained from History obtained from: Patient - History of Present Illness Timing - onset: How many days ago (several days of feeling abd bloating and "fluttery feeling" mid/upper abd. Has had feeling of legs edema/swelling for month or so to varying degrees. Now feeling abd bloating and intermittent cramps. Pain with urination and frequency. No abn vag bleeding. No vomiting.) Timing - duration: Days Timing - details: Gradual onset, Still present, Waxing and waning Quality: Cramping, Aching, Pain Location: LUQ, Periumbilical Radiation: No: Chest Improved by: No: BM (and does not feel relief with urination, has still feeling of needing to urinate just afterward.) Worsened by: Eating Associated symptoms: Nausea, Constipation (has not had BM for 2-3 days, so not very long, but she saates is usally daily at the same time of day.), Dysuria. No: Fever, Vomiting, Diarrhea, Hematuria Similar symptoms before: Has not had sx before Review of Systems Constitutional: denies: Fever, Chills Nose: denies: Rhinorrhea / runny nose, Congestion Throat: denies: Sore throat Respiratory: denies: Cough GI: reports: Abdominal Pain, Nausea, Constipation (for 2-3 days only; daily regular movements prior to that.). denies: Vomiting, Diarrhea : reports: Dysuria, Frequency PD PAST MEDICAL HISTORY - Past Medical History Past Medical History: Yes Cardiovascular: Hypertension Respiratory: None Neuro: None Endocrine/Autoimmune: None GI: Chronic constipation, Hemorrhoids PROPERTY ASSESSMENT MONITOR: None : None HEENT: None Derm: None Other Past Medical History: PCOS - Past Surgical History Past Surgical History: Yes Ortho: Other /PROPERTY ASSESSMENT MONITOR: Tubal ligation - Present Medications Home Medications: Ambulatory Orders Medication Instructions Recorded Confirmed Fluconazole [Diflucan] 100 mg PO ONCE #1 tablet 09/19/23 Phenazopyridine HCl [Pyridium] 100 mg PO TID PRN #15 tablet 09/19/23 cephALEXin [Keflex] 500 mg PO TID #20 cap 09/19/23 hydroCHLOROthiazide [Hydrodiuril] 25 mg PO DAILY #15 tablet 09/19/23 - Allergies Allergies/Adverse Reactions: Allergies Allergy/AdvReac Type Severity Reaction Status Date / Time No Known Drug Allergies Allergy Verified 09/19/23 10:04 - Social History Does the pt smoke?: No Smoking Status: Former smoker Does the pt drink ETOH?: No Does the pt have substance abuse?: No - Immunizations Immunizations are current?: No - POLST Patient has POLST: No PD ED PE NORMAL - Vitals Vital signs reviewed: Yes - General General: Alert and oriented X 3, No acute distress, Well developed/nourished - Cardiac Cardiac: RRR, No murmur - Respiratory Respiratory: No respiratory distress, Clear bilaterally - Abdomen Abdomen: Soft, Non distended, No organomegaly, Other (tender left abd and LUQ without guarding nor percussion tenderness. ). No: Normal bowel sounds (i ncreased/hyperactive.) - Female Female : Deferred - Rectal Rectal: Deferred - Back Back: No CVA TTP - Derm Derm: Normal color, Warm and dry Results - Vitals Vitals: Oxygen O2 Source Room air - Labs Labs: Laboratory Tests 09/19/23 09/19/23 09/19/23 10:16 10:40 10:40 WBC 9.5 RBC 4.80 Hgb 13.3 Hct 41.2 MCV 85.8 MCH 27.7 MCHC 32.3 RDW 12.7 Plt Count 276 MPV 10.3 Neut # (Auto) 5.4 Lymph # (Auto) 2.7 Mercer # (Auto) 0.6 Eos # (Auto) 0.6 Baso # (Auto) 0.1 Absolute Nucleated RBC 0.00 Nucleated RBC % 0.0 Sodium 138 Potassium 3.8 Chloride 105 Carbon Dioxide 23 Anion Gap 10.0 BUN 17 Creatinine 0.8 Estimated GFR (MDRD) 81 L Glucose 90 Calcium 9.2 Total Bilirubin 0.3 AST 13 ALT 16 Alkaline Phosphatase 55 Total Protein 7.5 Albumin 4.2 Globulin 3.3 Albumin/Globulin Ratio 1.3 Lipase 15 Urine Color YELLOW Urine Clarity CLEAR Urine pH 5.5 Ur Specific Stuart >=1.030 H Urine Protein NEGATIVE Urine Glucose (UA) NEGATIVE Urine Ketones NEGATIVE Urine Occult Blood SMALL H Urine Nitrite NEGATIVE Urine Bilirubin NEGATIVE Urine Urobilinogen 0.2 (NORMAL) Ur Leukocyte Esterase NEGATIVE Urine RBC 0-5 Urine WBC 0-3 Ur Squamous Epith Cells RARE Squamous Urine Bacteria Rare Ur Microscopic Review INDICATED Urine Culture Comments NOT INDICATED Urine HCG, Qual NEGATIVE - Rads (name of study) abd/pelvic CT Relevant Findings:: Prelim report reviewed (renal cyst 1.9 cm, smaller than imaging 2018. No abnormality to account for pain. ), EMP independent interpretation of test PD Medical Decision Making - ED course Complexity details: reviewed results (UA with few RBCs and bacteria otherwise negative for UTI. Her symptoms are c/w UTI vs IC. Can treat for possible UTI but also pyridum and NSAID. CT of abd did not show other acute cause of pain. Renal cyst noted as smaller than 2018 and pt aware of the cyst from prior imaging. ), considered differential (lower abd pain with dysuria and frequency. Feeling of abd bloating and fullness, with general edema of legs/abd over few weeks. No orthopnea/dyspnea. Has not weighed herself to see if weight gain per se. ), d/w patient Reviewed Lab Results: normal UA without protein. Serum protein normal. Renal function normal. CBC is good. Pt does not have abn lung sounds nor orthopnea/dyspnea. Does not seem like heart failure. No renal failure. Unclear cause of her noted edema over month or two. Current abd bloating is not from ascites nor abd fluid. No obstruction of intestines. Consider some obstipation leading to bloating. Edema of legs could be peripheral. Can try mild diuretic short term. Stool softener. Otherwise her UTI symptoms vs IC can treat with meds for it. Departure - Departure Disposition: 01 Home, Self Care Clinical Impression: Abdominal bloating, Edema, Dysuria Condition: Stable Record reviewed to determine appropriate education?: Yes Instructions: ED Abdominal Pain Female Non-Specific Abdominal Pain, ED Dysuria Uncertain Cause Follow-Up: [facility] [Provider Group] [facility] [Provider Group] Prescriptions: Fluconazole [Diflucan] 100 mg PO ONCE #1 tablet hydroCHLOROthiazide [Hydrodiuril] 25 mg PO DAILY #15 tablet cephALEXin [Keflex] 500 mg PO TID #20 cap Phenazopyridine HCl [Pyridium] 100 mg PO TID PRN #15 tablet PRN Reason: Abdominal Pain Comments: Your kidney function and electrolytes and liver function tests are normal. Your urinalysis does not show obvious signs of infection but your symptoms would be suggestive of bladder infection. Alternatively you could have some inflammation through the bladder causing similar symptoms (interstitial cystitis). I would treat it as a bladder infection in case. Cephalexin 3 times daily for 5 days as directed. I would also suggest adding an anti-inflammatory such as ibuprofen or naproxen 2-3 bufr-yca-audbrqa tablets 3 times daily with food for the next 5 days. Add a mild stool softener such as docusate daily for the next several days to week and then as needed. Your CT scan does not show any obvious abnormality to account for the bloating and distention. There may be some increased stool perhaps. There is no signs of fluid accumulated within the abdomen. With your normal kidney and liver function and electrolytes, I do not see an obvious reason for fluid retention per se. We could try a mild water pill/diuretic over the next several days to week and see if that helps with your general fluid retention. Again it does not seem to be related to significant cause such as kidney impairment etc. I sent these prescriptions to your preferred pharmacy. Recheck if symptoms or not improving over the next few days with the walk-in clinic or back here to the ER etc. I anticipate improvement and resolution however of your symptoms over the next few days. Forms: PCP List Discharge Date/Time: 09/19/23 15:02
[2023-09-19 10:33] LABS: CLARITY,URINE CLEAR (CLEAR); HCG UR QUAL NEGATIVE
[2023-09-19 10:43] LABS: RBC,URINE 0-5 /HPF (0-5); SQUAMOUS EPITHELIAL CELL,UR RARE Squamous (<= Few); WBC,URINE 0-3 /HPF (0-5)
[2023-09-19 10:44] LABS: BACTERIA,URINE Rare /HPF (None Seen)
[2023-09-19 10:48] LABS: BASOPHILS # (AUTO) 0.1 10^3/uL (0.0-0.1); BASOPHILS % (AUTO) 0.7 %; EOSINOPHILS # (AUTO) 0.6 10^3/uL (0.0-0.7); EOSINOPHILS % (AUTO) 6.3 %; HCT - HEMATOCRIT 41.2 % (37.0-47.0); HGB - HEMOGLOBIN 13.3 g/dL (12.0-16.0); LYMPHOCYTES # (AUTO) 2.7 10^3/uL (1.5-3.5); LYMPHOCYTES % (AUTO) 28.6 %; MEAN CORPUSCULAR HEMOGLOBIN 27.7 pg (27.0-31.0); MEAN CORPUSCULAR HGB CONC 32.3 g/dL (32.0-36.0); MEAN CORPUSCULAR VOLUME 85.8 fL (81.0-99.0); MEAN PLATELET VOLUME 10.3 fL (7.9-10.8); MONOCYTES # (AUTO) 0.6 10^3/uL (0.0-1.0); MONOCYTES % (AUTO) 6.8 %; NEUTROPHILS # (AUTO) 5.4 10^3/uL (1.5-6.6); NEUTROPHILS % (AUTO) 57.4 %; PLT - PLATELET COUNT 276 10^3/uL (130-450); RED CELL DISTRIBUTION WIDTH 12.7 % (12.0-15.0); WHITE BLOOD COUNT 9.5 x10^3/uL (4.8-10.8)
[2023-09-19 11:02] LABS: ALBUMIN 4.2 g/dL (3.2-5.5); ALBUMIN/GLOBULIN RATIO 1.3 (1.0-2.2); BILIRUBIN,TOTAL 0.3 mg/dL (0.2-1.0); CALCIUM 9.2 mg/dL (8.5-10.3); CREATININE 0.8 mg/dL (0.6-1.3); POTASSIUM 3.8 mmol/L (3.5-4.5); TOTAL PROTEIN 7.5 g/dL (6.4-8.9)
[2023-09-19] MEDS ORDERED: iohexoL-300 100 ML VIAL ONE (11:31)
--- NOTE | 2023-09-19 12:20 | CT Report ---
PROCEDURE: Abdomen/Pelvis W INDICATIONS: abd blaoting and cramping CONTRAST: Omni 300 100ml TECHNIQUE: After the administration of intravenous contrast, a CT scan of the abdomen and pelvis was performed. Images were recorded and evaluated at appropriate window settings. Reformats: coronal and sagittal. F or radiation dose reduction, the following was used: automated exposure control, adjustment of mA and /or kV according to patient size. COMPARISON: 01/12/2018 FINDINGS: Image quality: Diagnostic Lower chest: No basal consolidations or effusions. Small right Bochdalek's hernia. Normal heart size. Liver: No solid liver lesions identified. Gallbladder and biliary system: Unremarkable, nondilated. Small periampullary duodenal diverticulum. Pancreas: No ductal dilation. Spleen: Nonenlarged Adrenals: No discrete nodules Kidneys: Indeterminate 1.9 cm left upper pole lesion is present, this is smaller than 2018 when it ap peared more like a simple cyst. Subcentimeter lesions are too small to characterize, Bosniak 2. No hy dronephrosis. Vessels and lymph nodes: The main portal vein is patent. No abdominal aortic aneurysm. No pathologic lymph nodes by size criteria. Bowel and peritoneum: No evidence of small bowel obstruction. No pathologic ascites or drainable absc ess. A small amount pelvic free fluid is probably physiologic. Nondilated appendix. Body wall: Unremarkable Pelvis: Bladder is unremarkable. Reproductive organs appear physiologic on limited CT evaluation. 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 Suspected small uterine fibroids. Bones: No acute or suspicious osseous finding. IMPRESSION: No acute abdominal pelvic abnormality. No small bowel obstruction. Other findings as above. Indeterminate left upper pole renal lesion, favored to represent bleeding/proteinaceous debris inside the simple cyst seen in December 2017. Consider sonographic follow-up to ensure there are no solid compon ents. Reviewed by: Solomon Wylie MD on 09/19/2023 12:19 PM PST Approved by: Solomon Wylie MD on 09/19/2023 12:19 PM PST Station ID: [id number]
[2023-09-19 13:42] VITALS: O2SAT 98
[2023-09-19] MEDS ORDERED: cephALEXin 250 MG CAPSULE PO STA (14:03)
[2023-09-19] MEDS ORDERED: DOCUSATE SODIUM 100 MG CAPSULE PO STA (14:03)
[2023-09-19] MEDS ORDERED: PHENAZOPYRIDINE 100 MG TABLET PO STA (14:03)
[2023-09-19] MEDS ORDERED: KETOROLAC 15 MG/ML VIAL IVP STA (14:03)
[2023-09-19 14:48] VITALS: BP 152/106
[2023-09-19] MEDS ORDERED: iohexoL-300 100 ML VIAL IVP ONE (15:13)
== END 2023-09-19 15:02 | disposition home or self-care (01) ==
LOC: ED 10:01
DX: R14.0 Abdominal distension (gaseous) (principal); R30.0 Dysuria; R60.9 Edema, unspecified; R10.33 Periumbilical pain; I10 Essential (primary) hypertension; Z87.891 Personal history of nicotine dependence
CPT/HCPCS: 36415; 74177; 80053; 81001; 81025; 83690; 85025; 96374; 99284; A9270; Q9967; 81003; 87086

== ENCOUNTER 2023-12-20 10:45 | Outpatient (CLI) | payer MEDICAID ==
[2023-12-20 11:19] LABS: BASOPHILS # (AUTO) 0.1 10^3/uL (0.0-0.1); BASOPHILS % (AUTO) 0.5 %; EOSINOPHILS # (AUTO) 0.3 10^3/uL (0.0-0.7); EOSINOPHILS % (AUTO) 3.2 %; HCT - HEMATOCRIT 40.5 % (37.0-47.0); LYMPHOCYTES % (AUTO) 20.3 %; MEAN CORPUSCULAR HEMOGLOBIN 27.5 pg (27.0-31.0); MEAN CORPUSCULAR HGB CONC 32.1 g/dL (32.0-36.0); MEAN CORPUSCULAR VOLUME 85.6 fL (81.0-99.0); MEAN PLATELET VOLUME 10.8 fL (7.9-10.8); MONOCYTES # (AUTO) 0.6 10^3/uL (0.0-1.0); NEUTROPHILS # (AUTO) 6.9 10^3/uL (1.5-6.6); NEUTROPHILS % (AUTO) 69.9 %; PLT - PLATELET COUNT 282 10^3/uL (130-450); RED BLOOD COUNT 4.73 10^6/uL (4.20-5.40); RED CELL DISTRIBUTION WIDTH 13.7 % (12.0-15.0); WHITE BLOOD COUNT 9.9 x10^3/uL (4.8-10.8)
[2023-12-20 11:34] LABS: ALBUMIN 4.3 g/dL (3.2-5.5); ALBUMIN/GLOBULIN RATIO 1.6 (1.0-2.2); ALKALINE PHOSPHATASE 53 IU/L (42-121); ALT ALANINE AMINOTRANSFERASE 14 IU/L (10-60); AST ASPARTATE AMINOTRANSFERASE 12 IU/L (10-42); BILIRUBIN,TOTAL 0.3 mg/dL (0.2-1.0); BUN - BLOOD UREA NITROGEN 13 mg/dL (6-20); CALCIUM 9.6 mg/dL (8.5-10.3); CARBON DIOXIDE - CO2 28 mmol/L (21-32); CHLORIDE 104 mmol/L (101-111); CHOL/HDL RATIO 5.4 (<4.4); CHOLESTEROL 232 mg/dL; CREATININE 0.6 mg/dL (0.6-1.3); GFR - MDRD 112 (>89); GLUCOSE 100 mg/dL (74-104); HDL CHOLESTEROL 43 mg/dL; LDL CHOLESTEROL,CALCULATED 158 mg/dL; LDL/HDL RATIO 3.7 (<4.4); POTASSIUM 4.3 mmol/L (3.5-4.5); SODIUM 137 mmol/L (135-145); TRIGLYCERIDES 154 mg/dL (48-352); VLDL CHOLESTEROL 31 mg/dL
[2023-12-20 11:40] LABS: HCG,QUALITATIVE BLOOD NEGATIVE
[2023-12-20 11:49] LABS: THYROID STIMULATING HORMONE 2.61 uIU/mL (0.34-5.60)
== END 2023-12-20 10:46 | disposition home or self-care (01) ==
LOC: LAB 10:45
PROVIDERS: ATTEND Nurse Practitioner Family
DX: R19.7 Diarrhea, unspecified (principal); I10 Essential (primary) hypertension; Z83.49 Family history of other endocrine, nutritional and metabolic diseases; N91.2 Amenorrhea, unspecified
CPT/HCPCS: 36415; 80053; 80061; 83721; 84443; 84703; 85025

== ENCOUNTER 2023-12-21 08:00 | Outpatient (CLI) | payer MEDICAID | END 2023-12-21 23:59 | disposition home or self-care (01) | LOC: LAB.R 08:00 | PROVIDERS: ATTEND Nurse Practitioner Family | DX: B83.9 Helminthiasis, unspecified (principal); R19.7 Diarrhea, unspecified | CPT/HCPCS: 87045; 87046; 87177; 87209; 87427 ==

== ENCOUNTER 2024-01-13 01:14 | Emergency (ER) | payer MEDICAID ==
[2024-01-13 01:39] VITALS: BP 137/83; O2SAT 98
--- NOTE | 2024-01-13 01:52 | ED Physician Documentation ---
PD HPI HEENT - Stated complaint Stated Complaint: R EAR PX - Chief complaint Chief Complaint: Heent - History obtained from History obtained from: Patient - Additional information Additional information: 38yF previously healthy p/w R ear pain starting around 20:00 last evening, with fluid sensation in the ear. denies fever, pain with pulling on ear or hearing loss. 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 - Present Medications Home Medications: Ambulatory Orders Medication Instructions Recorded Confirmed Amoxicillin 875 mg PO BID #14 tablet 01/13/24 Lisinopril [Zestril] 10 mg PO DAILY 01/13/24 01/13/24 - Allergies Allergies/Adverse Reactions: Allergies Allergy/AdvReac Type Severity Reaction Status Date / Time No Known Drug Allergies Allergy Verified 09/19/23 10:04 - Social History Does the pt smoke?: No Smoking Status: Never smoker Does the pt drink ETOH?: No Does the pt have substance abuse?: No - Immunizations Immunizations are current?: No - POLST Patient has POLST: No PD ED PE NORMAL - Vitals Vital signs reviewed: Yes - General General: Alert and oriented X 3, No acute distress, Well developed/nourished - HEENT HEENT: Atraumatic, PERRL, EOMI, Other (R TM erythematous. L TM clear) - Neck Neck: Supple, no meningeal sign Results - Vitals Vitals: Vital Signs - 24 hr 01/13/24 01:28 Temperature 36.4 C L Heart Rate 102 H Respiratory 24 Rate Blood Pressure 137/83 H O2 Saturation 98 Oxygen O2 Source Room air PD Medical Decision Making - ED course ED course: 38yF p/w R otitis media, treated with antibiotics here in the ED. Prescription sent to pharmacy. return precautions given. plan to f/u with pcp in 2-3 days for re-check. Departure - Departure Disposition: Home, Self Care Clinical Impression: Otitis media Condition: Stable Instructions: ED Otitis Media Acute Adult Prescriptions: Amoxicillin 875 mg PO BID #14 tablet Comments: You were seen in the emergency department for ear infection. Antibiotics sent to [facility] [place]. Please follow-up with your primary care provider and return to the emergency department if you have any new or worsening symptoms or other concerns.
[2024-01-13] MEDS: AMOXICILLIN 250 MG CAPSULE PO STA (01:57)
== END 2024-01-13 02:00 | disposition home or self-care (01) ==
LOC: ED 01:14
DX: H66.91 Otitis media, unspecified, right ear (principal); I10 Essential (primary) hypertension
CPT/HCPCS: 99283; A9270

== ENCOUNTER 2024-02-10 23:35 | Outpatient (CLI) | payer MEDICAID | END 2024-02-10 23:59 | disposition EMS.NT | LOC: EMS 23:35 | DX: R05.9 Cough, unspecified (principal); R51.9 Headache, unspecified ==

== ENCOUNTER 2024-03-20 11:18 | Outpatient (CLI) | payer MEDICAID ==
[2024-03-20 11:40] LABS: CHOL/HDL RATIO 4.9 (<4.4); CHOLESTEROL 202 mg/dL; HDL CHOLESTEROL 41 mg/dL; LDL CHOLESTEROL,CALCULATED 137 mg/dL; LDL/HDL RATIO 3.3 (<4.4); TRIGLYCERIDES 118 mg/dL; VLDL CHOLESTEROL 24 mg/dL
== END 2024-03-20 11:19 | disposition home or self-care (01) ==
LOC: LAB 11:18
PROVIDERS: ATTEND Nurse Practitioner Family
DX: E78.2 Mixed hyperlipidemia (principal)
CPT/HCPCS: 36415; 80061; 83721